=== PATIENT | female | born 1955 | race Caucasian/White ===

== ENCOUNTER → 2021-10-08 | Outpatient (CLI) | payer MEDICARE ==
--- NOTE | 2021-10-08 16:46 | BD ---
EXAMINATION TYPE: Axial Bone Density DATE OF EXAM: 10/08/2021 COMPARISON: NONE CLINICAL HISTORY: 66 years year old Female. ICD-10 CODE: Z78.0 ASYMPTOMATIC MENOPAUSAL Height: 65.4 Weight: 165 FRAX RISK QUESTIONS: Family History (Parent hip fracture): NOT A HIP Secondary Osteoporosis: YES 3. Menopause before 45: YES Current Tobacco Use: NO RISK FACTORS HISTORY OF: Family History of Osteoporosis: YES, MOTHER WITH FX NOT HIP Active: YES Postmenopausal woman: YES, EARLY ABOUT 41 YRS OLD Take estrogen and/or progesterone medications: YES IN THE PAST FOR A COUPLE YRS Lost more than 2 inches in height since high school: NO Hyperparathyroidism: NO Adrenal Insufficiency: NO MEDICATIONS: Prednisone or other steroids: YES, FOR ASTHMA Additional Medications: CYMBALTA, CHOLESTEROL MEDS, VIT D Additional History: CHOLESTEROL, SLIGHT ASTHMA, ANXIETY/DEPRESSION, ASPIRIN EXAM MEASUREMENTS: Bone mineral densitometry was performed using the [employer] System. Bone mineral density as measured about the Lumbar spine is: ----- L1-L4(G/cm2): 1.054 T Score Values are as follows: ----- L1: -0.4 ----- L2: -1.7 ----- L3: -0.6 ----- L4: -1.6 ----- L1-L4: -1.1 Bone mineral density FIRST BONE DENSITY AT [facility] Bone mineral density about the R hip (g/cm2): 0.815 Bone mineral density about the L hip (g/cm2): 0.792 T Score values are as follows: -----R Neck: -1.0 -----L Neck: -1.8 -----R Total: -1.5 -----L Total: -1.7 Bone mineral density FIRST DEXA STUDY AT [facility] FRAX%s: The graph provided illustrates a 4.0% chance for a major osteoporotic fx and a 0.8% chance fo r the hips probability for fx in 10 years time. IMPRESSION: Osteopenia (T Score between -2.5 and -1). There is slightly increased risk of fracture and the patient may be considered for treatment. Re-Screen 2-5 years. NOTE: T-SCORE=SD OF THE YOUNG ADULT MEAN.
--- NOTE | 2021-10-10 14:36 | MM ---
Reason for Exam: Screening (asymptomatic). Last mammogram was performed 10 year(s) and 0 month(s) ago. Patient History: Menarche at age 10. First Full-Term at age 24. Left ovary removed at age 33. Hysterectomy at age 33. Postmenopausal. Estrogen and Progesterone for 1 year from age 46 until age 47. Last menstrual period: 05/02/1988 Risk Values: Anuradha 5 year model risk: 1.6%. NCI Lifetime model risk: 6.2%. Prior Study Comparison: No prior studies available for comparison. Tissue Density: There are scattered fibroglandular densities. Findings: Analyzed By CAD. Global asymmetry anterior right breast. No persisting abnormality on 3-D images. Otherwise, no significant mass, suspicious microcalcifications, or other discrete abnormality is seen. Overall Assessment: Benign, BI-RAD 2 Management: Screening Mammogram of both breasts in 1 year. A clinical breast exam by your physician is recommended on an annual basis and results should be correlated with mammographic findings. Also, the patient should continue monthly self breast exams. Electronically signed and approved by: Tyrell Rodriguez M.D. Radiologist
== END | disposition home or self-care (01) ==
LOC: RADMAMWWP 08:06
PROVIDERS: ATTEND Family Medicine
DX: Z12.31 Encounter for screening mammogram for malignant neoplasm of breast (principal); Z78.0 Asymptomatic menopausal state
CPT/HCPCS: 77063; 77067; 77080

== ENCOUNTER 2021-12-01 07:50 | Day surgery (SDC) | payer MEDICARE ==
[2021-11-26 15:19] VITALS: BMI 25.0
[~2021-12-01 07:50] MED LIST: LACTATED RINGERS 1,000 ML IV SCH; LIDOCAINE 1% (10MG/ML) FOR IV START INTRADERMA PRN
[2021-12-01 08:08] VITALS: TEMP 98.4
[2021-12-01] MEDS ORDERED: PROPOFOL 10 MG/ML 20 ML VIAL IV ONE (09:14)
--- NOTE | 2021-12-01 09:46 | P.PCN ---
Date of Procedure: 12/01/21 Procedure(s) Performed: BRIEF HISTORY: Patient is a 66-year-old pleasant femalw scheduled for an elective colonoscopy as a part of evaluation of positive cologuard PROCEDURE PERFORMED: Colonoscopyhistory of polypectomy and argon plasma coagulation. PREOPERATIVE DIAGNOSIS: Positive cologuard. IV sedation per Anesthesia. PROCEDURE: After informed consent was obtained, the patient, was brought into the endoscopy unit. IV sedation was administered by Anesthesia under continuous monitoring. Digital rectal examination was normal. Initially the Olympus CF-160 flexible video colonoscope was then inserted in the rectum, gradually advanced into the cecum without any difficulty. Careful examination was performed as the scope was gradually being withdrawn. Ileocecal valve and the appendiceal orifice were visualized and appeared normal. Prep was excellent. Mucosa of the cecum,appeared normal. In the ascending colon there was a 3 cm flat polyp just proximal to the ileocecal valve that was removed by snare polypectomy followed by argon plasma coagulation and complete polypectomy was accomplished. There were other 3 polyps in the ascending colon measuring between 5 mm to 1 cm in size removed by snare polypectomy. In the hepatic flexure there was a 1 m polyp removed by snare polypectomy. In the sigmoid colon there was a 5 mm and 1 cm polyp removed by snare polypectomy. In the proximal rectum there was a 2 cm peduncle related polyp removed by snare polypectomy. Retroflexion was performed in the rectum and no lesions were seen. The patient tolerated the procedure well. IMPRESSION: 3 cm flat polyp in the ascending colon was about ileocecal valve status post piecemeal snare polypectomy followed by argon plasma coagulation 5 mm, 1 cm 2 ascending colon polyps status post snare polypectomy 1 cm hepatic flexure polyp status post polypectomy 5 mm and 1 cm sigmoid polyp status post polypectomy 2 cm pedunculated proximal rectal polyp status post polypectomy RECOMMENDATIONS: Findings of this examination were discussed with the patient as well as her family.she was advised to follow with the biopsy results. Recommended repeat colonoscopy in one year.
[2021-12-01 10:36] VITALS: BP 145/83; PULSE 62; RESP 16
== END 2021-12-01 10:38 | disposition home or self-care (01) ==
LOC: ORWHC2ENDO 07:50
PROVIDERS: ATTEND Internal Medicine Gastroenterology
DX: D12.0 Benign neoplasm of cecum (principal); D12.5 Benign neoplasm of sigmoid colon; D12.2 Benign neoplasm of ascending colon; D12.8 Benign neoplasm of rectum; Z80.0 Family history of malignant neoplasm of digestive organs; E78.5 Hyperlipidemia, unspecified; M79.7 Fibromyalgia; F32.A Depression, unspecified; Z90.49 Acquired absence of other specified parts of digestive tract; Z90.710 Acquired absence of both cervix and uterus; Z98.890 Other specified postprocedural states; Z79.899 Other long term (current) drug therapy; Z91.09 Other allergy status, other than to drugs and biological substances
CPT/HCPCS: 88305; 45385; J2704; 45388

== ENCOUNTER → 2022-10-11 | Outpatient (CLI) | payer MEDICARE ==
--- NOTE | 2022-10-12 14:49 | MM ---
Reason for Exam: Screening (asymptomatic). Last screening mammogram was performed 12 month(s) ago. Patient History: Menarche at age 10. First Full-Term at age 24. Left ovary removed at age 33. Hysterectomy at age 33. Postmenopausal. Patient has history of breast feeding. Estrogen and Progesterone for 1 year from age 46 until age 47. Maternal aunt had breast cancer at or over age 50. Maternal aunt had ovarian cancer under age 50. Risk Values: Anuradha 5 year model risk: 1.6%. NCI Lifetime model risk: 5.9%. Prior Study Comparison: 10/08/2021 Bilateral MG 3D screening mammo w/cad, [facility]. Tissue Density: The breast tissue is heterogeneously dense. This may lower the sensitivity of mammography. Findings: Analyzed By CAD. There is no suspicious group of microcalcifications or new suspicious mass in either breast. Overall Assessment: Negative, BI-RAD 1 Management: Screening Mammogram of both breasts in 1 year. A clinical breast exam by your physician is recommended on an annual basis and results should be correlated with mammographic findings. Note on Anuradha scores and lifetime risk: 1. A Anuradha score greater than 3% is considered moderate risk. If this is the case, consider specialist referral to assess eligibility for a risk reducing agent. If overall lifetime risk for the development of breast cancer is 20% or higher, the patient may qualify for future screening with alternating mammogram and breast MRI. Electronically signed and approved by: Manolo Eaton D.O.
== END | disposition home or self-care (01) ==
LOC: RADMAMWWP 10:29
PROVIDERS: ATTEND Family Medicine
DX: Z12.31 Encounter for screening mammogram for malignant neoplasm of breast (principal); Z78.0 Asymptomatic menopausal state; Z80.3 Family history of malignant neoplasm of breast; Z80.41 Family history of malignant neoplasm of ovary
CPT/HCPCS: 77063; 77067

== ENCOUNTER → 2024-10-10 | Outpatient (CLI) | payer MEDICARE ==
--- NOTE | 2024-10-10 13:10 | USB ---
Patient History: Menarche at age 10. First Full-Term at age 24. Left ovary removed at age 33. Hysterectomy at age 33. Postmenopausal. Patient has history of breast feeding. Estrogen and Progesterone for 1 year from age 46 until age 47. Maternal aunt had breast cancer, age 70. Maternal aunt had ovarian cancer, age 50. Risk Values: Anuradha 5 year model risk: 1.7%. NCI Lifetime model risk: 5.5%. Technique: Method: Targeted. Prior Study Comparison: 10/08/2021 Bilateral MG 3D screening mammo w/cad, [facility]. 10/11/2022 Bilateral MG 3D screening mammo w/cad, [facility]. 10/05/2024 Bilateral MG 3D screening mammo w/cad, [facility]. Findings: The medial section of the breast of the right breast, the axilla of the right breast and the retroareolar of the right breast were scanned. Targeted ultrasound. At 3:00 position 2 cm distance from nipple technologist bell a 11 x 7 mm isoechoic vague area. Area of concern on mammogram is fairly stable from 2021 mammogram. Suspect focal prominent soft tissue. Overall Assessment: Probably benign, BI-RAD 3 Management: Diagnostic Mammogram of the right breast in 6 months. Diagnostic Breast Ultrasound of the right breast in 6 months. Precautionary short-term follow-up diagnostic imaging. A clinical breast exam by your physician is recommended on an annual basis and results should be correlated with mammographic findings. This exam should not preclude additional follow-up of suspicious palpable abnormalities. Results were given to the patient verbally at the time of exam. [facility], , 10/10/2024 1:07 PM. Electronically signed and approved by: Marty Elizabeth M.D.
== END | disposition home or self-care (01) ==
LOC: RADUSWWP 12:31
PROVIDERS: ATTEND Family Medicine
DX: R92.8 Other abnormal and inconclusive findings on diagnostic imaging of breast (principal); Z78.0 Asymptomatic menopausal state